=== PATIENT | male | born 1970 | race Caucasian/White ===

== ENCOUNTER 2020-07-29 19:18 | Emergency (ER) | payer SELFPAY ==
[2020-07-29] MEDS ORDERED: LORazepam 2 MG/ML VIAL ONE (19:33)
[2020-07-29 19:41] LABS: Absolute Lymphocytes (CBC) 1.4 K/uL (0.7-4.9); Basophils % 0.6 % (0-1.3); Hematocrit 35.2 % (39.6-49.0); Lymphocytes % 9.6 % (15.3-44.8); MPV 8.8 fL (7.6-11.3); RBC Red Blood Cell Count 3.97 M/uL (4.33-5.43)
[2020-07-29] MEDS ORDERED: NA CHLORIDE 0.9% 1,000 ML ONE (20:04)
[2020-07-29 20:08] LABS: ALT/SGPT 17 U/L (12-78); AST/SGOT 22 U/L (15-37); Albumin 3.4 g/dL (3.4-5.0); Alkaline Phosphatase 72 U/L (45-117); BUN Blood Urea Nitrogen 18 mg/dL (7-18); Bicarbonate 23 mmol/L (21-32); Bilirubin Direct 0.1 mg/dL (0-0.2); Bilirubin Total 0.3 mg/dL (0.2-1.0); Glucose Level 91 mg/dL (74-106); Potassium 3.3 mmol/L (3.5-5.1); Protein, Total 7.2 g/dL (6.4-8.2); Sodium Level 145 mmol/L (136-145)
[2020-07-29 20:09] LABS: Blood Morphology Comment NOT SEEN (NOT SEEN); Platelet Estimate ADEQ; White Blood Cell Scan OK (OK)
[2020-07-29 20:16] LABS: Protime INR 1.01
[2020-07-29 22:09] LABS: Urine Blood NEGATIVE (NEG); Urine Glucose NEGATIVE (NEG); Urine Protein 1+ (NEG); Urine Specific Gravity >1.030 (1.005-1.030); Urine pH 5.5 (5.0-7.0)
[2020-07-29 22:38] LABS: Barbiturates NEGATIVE (NEGATIVE); Benzodiazepines NEGATIVE (NEGATIVE); Cocaine NEGATIVE (NEGATIVE); METHAMPHETAM POSITIVE (NEGATIVE); Methadone NEGATIVE (NEGATIVE); Opiates NEGATIVE (NEGATIVE); Phencyclidine NEGATIVE (NEGATIVE); THC Cannibis POSITIVE (NEGATIVE)
--- NOTE | 2020-07-29 22:44 | EDPHYS ---
Physician Documentation [facility] Name: Alfredo Galdamez Age: 49 yrs Sex: Male : 1970 Arrival Date: 07/29/2020 Time: 19:18 Bed 8 Private MD: ED Physician Kelby Macias HPI: 07/30 06:39 This 49 yrs old Male presents to ER via EMS with complaints of Drug Abuse. tw4 06:39 Associated signs and symptoms: The patient has no apparent associated signs or tw4 symptoms. Severity of symptoms: At their worst the symptoms were moderate in the emergency department the symptoms are unchanged. The patient has experienced similar episodes in the past, a few times. Pt found by bystanders hallucinating after taking unknown amounts.. Historical: - Allergies: 07/29 19:50 No Known Allergies; vc - Immunization history:: Adult Immunizations unknown. - Social history:: Smoking status: Patient reports the use of cigarette tobacco products, Patient uses street drugs, Methamphetamine (Meth). ROS: 07/30 06:39 Constitutional: Negative for fever, chills, and weight loss, Eyes: Negative for injury, tw4 pain, redness, and discharge, Cardiovascular: Negative for chest pain, palpitations, and edema, Respiratory: Negative for shortness of breath, cough, wheezing, and pleuritic chest pain, Abdomen/GI: Negative for abdominal pain, nausea, vomiting, diarrhea, and constipation, Back: Negative for injury and pain, MS/Extremity: Negative for injury and deformity, Skin: Negative for injury, rash, and discoloration. Exam: 06:39 Constitutional: This is a well developed, well nourished patient who is awake, alert, tw4 and in no acute distress. Head/Face: Normocephalic, atraumatic. Chest/axilla: Normal chest wall appearance and motion. Nontender with no deformity. No lesions are appreciated. Cardiovascular: Regular rate and rhythm with a normal S1 and S2. No gallops, murmurs, or rubs. Normal PMI, no JVD. No pulse deficits. Respiratory: Lungs have equal breath sounds bilaterally, clear to auscultation and percussion. No rales, rhonchi or wheezes noted. No increased work of breathing, no retractions or nasal flaring. Abdomen/GI: Soft, non-tender, with normal bowel sounds. No distension or tympany. No guarding or rebound. No evidence of tenderness throughout. Back: No spinal tenderness. No costovertebral tenderness. Full range of motion. MS/ Extremity: Pulses equal, no cyanosis. Neurovascular intact. Full, normal range of motion. Neuro: Awake and alert, GCS 15, oriented to person, place, time, and situation. Cranial nerves II-XII grossly intact. Motor strength 5/5 in all extremities. Sensory grossly intact. Cerebellar exam normal. Normal gait. 06:39 Psych: Behavior/mood is cooperative, Affect is animated, Oriented to person, place, Patient has no thoughts/intents to harm self or others. Judgement / Insight is impaired. Delusions/hallucinations are present and described as hearing voices. Vital Signs: 07/29 19:42 BP 162 / 108; Pulse 128; Resp 20; Temp 101(O); Pulse Ox 98% on R/A; vc 20:33 BP 140 / 84; Pulse 74; Resp 20; Pulse Ox 100% ; vc 21:00 BP 144 / 97; Pulse 82; Resp 18; Temp 99.1; Pulse Ox 100% on R/A; Pain 0/10; vc 22:00 BP 139 / 84; Pulse 77; Resp 18; Pulse Ox 98% on R/A; Pain 0/10; vc MDM: 19:22 Patient medically screened. tw4 07/30 06:42 Differential diagnosis: Ingestion/exposure to methamphetamine. Data reviewed: vital tw4 signs, nurses notes. Data interpreted: Pulse oximetry: Interpretation: normal. Counseling: I had a detailed discussion with the patient and/or guardian regarding: the historical points, exam findings, and any diagnostic results supporting the discharge/admit diagnosis, lab results. Special discussion: I discussed with the patient/guardian in detail that at this point there is no indication for admission to the hospital. It is understood, however, that if the symptoms persist or worsen the patient needs to return immediately for re-evaluation. 07/29 19:23 Order name: Acetaminophen; Complete Time: 22:41 tw4 07/29 19:23 Order name: Basic Metabolic Panel; Complete Time: 22:41 tw4 07/29 22:42 Interpretation: Normal except: K 3.3; CRE 1.45; GFR 51. tw4 07/29 19:23 Order name: CBC with Diff; Complete Time: 22:41 [facility] 07/29 22:42 Interpretation: Normal except: WBC 14.3; RBC 3.97; HGB 11.8; HCT 35.2. [facility] 07/29 19:23 Order name: ETOH Level; Complete Time: 22:41 [facility] 07/29 22:42 Interpretation: Abnormal: ETOH 61. [facility] 07/29 19:23 Order name: Hepatic Function; Complete Time: 22:41 [facility] 07/29 22:42 Interpretation: Normal except: GLOB 3.8; A/G 0.9. [facility] 07/29 19:23 Order name: PT-INR; Complete Time: 22:41 [facility] 07/29 19:23 Order name: Ptt, Activated; Complete Time: 22:41 [facility] 07/29 19:23 Order name: Salicylate; Complete Time: 22:41 [facility] 07/29 19:23 Order name: Urine Drug Screen; Complete Time: 22:41 [facility] 07/29 22:42 Interpretation: Normal except: METHAMPHETAMINE POSITIVE; THC POSITIVE. [facility] 07/29 19:23 Order name: EKG; Complete Time: 19:24 [facility] 07/29 20:10 Order name: CBC Smear Scan; Complete Time: 22:41 [facility] 07/29 22:03 Order name: Urine Dipstick--Ancillary (enter results); Complete Time: 22:41 [facility] 07/29 22:42 Interpretation: Normal except: USPGR >1.030; UPROT 1+. [facility] 07/29 19:23 Order name: EKG - Nurse/Tech; Complete Time: 22:42 [facility] 07/29 19:23 Order name: IV Saline Lock; Complete Time: 19:42 [facility] 07/29 19:23 Order name: Labs collected and sent; Complete Time: 20:18 [facility] 07/29 19:23 Order name: Urine Dipstick-Ancillary (obtain specimen); Complete Time: 22:43 [facility] Administered Medications: 07/29 19:25 Drug: Ativan 1 mg Route: IVP; Site: right forearm; vc 20:00 Drug: NS 0.9% 1000 ml Route: IV; Rate: 1 bolus; Site: right forearm; vc Disposition: 07/29/20 22:44 Discharged to Home. Impression: Adverse effect of amphetamines, Cannabis abuse, Cannabis abuse with intoxication, uncomplicated. - Condition is Stable. - Discharge Instructions: Cannabis Use Disorder, Substance Use Disorder. - Medication Reconciliation Form, Thank You Letter, Antibiotic Education, Prescription Opioid Use form. - Follow up: Private Physician; When: Upon discharge from the Emergency Department; Reason: If symptoms return, Recheck today's complaints, Continuance of care, Re-evaluation by your physician. - Problem is new. - Symptoms have improved. Signatures: Dispatcher [employer] [facility] Kelby Macias MD MD tw4 Julissa Steele RN RN vc Corrections: (The following items were deleted from the chart) 23:17 22:44 07/29/2020 22:44 Discharged to Home. Impression: Adverse effect of amphetamines; vc Cannabis abuse; Cannabis abuse with intoxication, uncomplicated. Condition is Stable. Forms are Medication Reconciliation Form, Thank You Letter, Antibiotic Education, Prescription Opioid Use. Follow up: Private Physician; When: Upon discharge from the Emergency Department; Reason: If symptoms return, Recheck today's complaints, Continuance of care, Re-evaluation by your physician. Problem is new. Symptoms have improved. tw4
--- NOTE | 2020-07-29 22:44 | ER ---
Nurse's Notes [facility] Name: Alfredo Galdamez Age: 49 yrs Sex: Male : 1970 Arrival Date: 07/29/2020 Time: 19:18 Bed 8 Private MD: Diagnosis: Adverse effect of amphetamines;Cannabis abuse;Cannabis abuse with intoxication, uncomplicated Presentation: 07/29 19:42 Chief complaint: EMS states: "Patient was walking around an [place] complex in [facility] [place] [facility] when someone called stating they thought he was having a seizure, when we arrived he stated he hasn't had seizure and he's never had one in his life, "I just did a lot of Meth." Vitals in route were 171/113, pulse 125, 97% SpO2.". Coronavirus screen: fever, Client presents with at least one sign or symptom that may indicate coronavirus-19. Standard/surgical mask placed on the client. Ebola Screen: No symptoms or risks identified at this time. Initial Sepsis Screen: Does the patient meet any 2 criteria? Altered Mental Status. HR > 90 bpm. Yes Does the patient have a suspected source of infection? No. Patient's initial sepsis screen is negative. Risk Assessment: Do you want to hurt yourself or someone else? Patient reports no desire to harm self or others. Onset of symptoms was July 29, 2020. 19:42 Method Of Arrival: EMS: [facility] 19:42 Acuity: HAYDE 4 vc Triage Assessment: 19:45 General: Appears in no apparent distress. comfortable, slender, unkempt, Behavior is vc inappropriate for age, loud, and rambling. Talking to whom he states is Jehovah.. Pain: Denies pain. Historical: - Allergies: 19:50 No Known Allergies; vc - Immunization history:: Adult Immunizations unknown. - Social history:: Smoking status: Patient reports the use of cigarette tobacco products, Patient uses street drugs, Methamphetamine (Meth). Screenin:45 Abuse screen: Denies threats or abuse. Nutritional screening: No deficits noted. vc Tuberculosis screening: No symptoms or risk factors identified. Fall Risk None identified. Assessment: 19:40 General: Appears in no apparent distress. uncomfortable, Behavior is cooperative, vc inappropriate for age, Denies fever, feeling ill. Pain: Denies pain. Neuro: Level of Consciousness is awake, alert. 19:40 Musculoskeletal: Circulation, motion, and sensation intact. Range of motion: intact in vc all extremities. 19:40 General: Behavior is cooperative, inappropriate for age. Cardiovascular: Capillary vc refill < 3 seconds Patient's skin is warm and dry. Respiratory: Airway is patent Respiratory effort is even, unlabored, Respiratory pattern is regular, symmetrical. GI: Abdomen is flat, non-distended. : No signs and/or symptoms were reported regarding the genitourinary system. Derm: Wound noted left hand, Right first toenail and left foot. 21:00 Reassessment: Patient and/or family updated on plan of care and expected duration. Pain vc level reassessed. Patient denies pain at this time. 22:00 Reassessment: Patient and/or family updated on plan of care and expected duration. Pain vc level reassessed. Patient denies pain at this time. Patient states symptoms have improved. 23:00 Reassessment: Patient and/or family updated on plan of care and expected duration. Pain vc level reassessed. Patient denies pain at this time. Patient states symptoms have improved. Vital Signs: 19:42 BP 162 / 108; Pulse 128; Resp 20; Temp 101(O); Pulse Ox 98% on R/A; vc 20:33 BP 140 / 84; Pulse 74; Resp 20; Pulse Ox 100% ; vc 21:00 BP 144 / 97; Pulse 82; Resp 18; Temp 99.1; Pulse Ox 100% on R/A; Pain 0/10; vc 22:00 BP 139 / 84; Pulse 77; Resp 18; Pulse Ox 98% on R/A; Pain 0/10; vc ED Course: 19:18 Patient arrived in ED. cf2 19:22 Kelby Macias MD is Attending Physician. tw4 19:25 Inserted saline lock: 20 gauge in right forearm, using aseptic technique. Blood vc collected. 19:42 Julissa Steele RN is Primary Nurse. vc 19:45 Arm band placed on. vc 19:50 Triage completed. vc 23:15 No provider procedures requiring assistance completed. IV discontinued, intact, vc bleeding controlled, No redness/swelling at site. Pressure dressing applied. 23:15 Patient has correct armband on for positive identification. Bed in low position. Call vc light in reach. Side rails up X2. cardiac monitor technician on. Pulse ox on. NIBP on. Administered Medications: 19:25 Drug: Ativan 1 mg Route: IVP; Site: right forearm; vc 20:00 Drug: NS 0.9% 1000 ml Route: IV; Rate: 1 bolus; Site: right forearm; vc Outcome: 22:44 Discharge ordered by MD. pereira 23:15 Discharged to home ambulatory. vc 23:15 Condition: good 23:15 Discharge instructions given to patient, Instructed on discharge instructions, follow up and referral plans. 23:17 Patient left the ED. vc Signatures: Kelby Macias MD MD tw4 Ren Lyles cf2 Julissa Steele RN RN vc Corrections: (The following items were deleted from the chart) 20:22 20:19 Inserted saline lock: 20 gauge in right forearm, using aseptic technique. Blood vc collected. vc 07/30 02:15 07/29 22:44 General: Appears in no apparent distress. uncomfortable, Behavior is vc cooperative, inappropriate for age, Denies fever, feeling ill, vc 07/30 02:15 16 22:44 Pain: Denies pain. vc vc 07/30 02:15 07/29 22:44 Neuro: Level of Consciousness is awake, alert, stuporous, vc vc
[2020-07-29 23:31] VITALS: TEMP 99.1
[2020-07-29 23:33] VITALS: BP 139/84; O2SAT 98
== END 2020-07-29 23:17 | disposition home or self-care (01) ==
LOC: ER 19:18
DX: F12.129 Cannabis abuse with intoxication, unspecified (principal); T43.625A Adverse effect of amphetamines, initial encounter; F17.210 Nicotine dependence, cigarettes, uncomplicated
CPT/HCPCS: 36415; 80048; 80076; 80307; 80320; 80329; 81003; 85025; 85610; 85730; 93005; 96374; 99284; J7030

== ENCOUNTER 2024-11-09 20:39 | Emergency (ER) | payer OTHER, SELFPAY ==
[2024-11-09 21:11] LABS: Absolute Basophils 0.1 K/uL (0-0.5); Absolute Eosinophils 0.1 K/uL (0-0.5); Absolute Monocytes 0.5 K/uL (0.1-1.3); Basophils % 0.9 % (0-1.3); Hemoglobin 12.6 g/dL (13.6-17.9); Lymphocytes % 14.7 % (15.3-44.8); MCH 29.9 pg (27.0-35.0); MCV 90.6 fL (80-100); MPV 8.5 fL (7.6-11.3); Monocytes % 7.9 % (3.3-12.3); Neutrophils % 74.5 % (41.7-73.7); Platelets 169 thou/uL (152-406); Red Cell Distribution Width 13.9 % (12.1-15.2)
[2024-11-09 21:31] LABS: Anion Gap 6.7 mEq/L (5.0-15.0); Potassium 3.7 mEq/L (3.5-5.1)
--- NOTE | 2024-11-09 21:47 | ER ---
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 Coronavirus screen: Client denies travel out of the [place] in the last 14 days. Ebola Screen: Patient negative for fever greater than or equal to 101.5 degrees Fahrenheit, and additional compatible Ebola Virus Disease symptoms Patient denies exposure to infectious person. Patient denies travel to an Ebola-affected area in the 21 days before illness onset. Initial Sepsis Screen: Does the patient meet any 2 criteria? No. Patient's initial sepsis screen is negative. Does the patient have a suspected source of infection? No. Patient's initial sepsis screen is negative. Risk Assessment: Do you want to hurt yourself or someone else? Patient reports no desire to harm self or others. Onset of symptoms was October 26, 2024 at 12:00. 20:55 Acuity: HAYDE 3 br2 20:55 Method Of Arrival: EMS: [facility] br2 21:07 Chief complaint:. br2 Triage Assessment: 20:59 General: Appears uncomfortable, Behavior is flat, quiet. Pain: Complains of pain in br2 right leg and left leg Pain does not radiate. Pain currently is 6 out of 10 on a pain scale. EENT: No signs and/or symptoms were reported regarding the EENT system. Neuro: Diamond Agitation-Sedation Scale (RASS): 0 - Alert and Calm Reports dizziness, weakness in face since 2 WEEKS. Cardiovascular: Reports lightheadedness, shortness of breath, Capillary refill < 3 seconds. Respiratory: Airway is patent Respiratory effort is even, unlabored, Respiratory pattern is regular, symmetrical. GI: Reports lower abdominal pain, upper abdominal pain. Historical: - Allergies: 20:59 No Known Allergies; br2 - Home Meds: 20:59 None [Active]; br2 - PSHx: 20:59 None; br2 - Immunization history:: Adult Immunizations not up to date. - Infectious Disease History:: Denies. - Social history:: Smoking status: Patient reports the use of cigarette tobacco products, smokes one-half pack cigarettes per day, Patient uses alcohol, occasionally. street drugs, marijuana, Methamphetamine (Meth). Screenin:55 [facility] ED Fall Risk Assessment (Adult) History of falling in the last 3 months, br2 including since admission No falls in past 3 months (0 pts) Confusion or Disorientation No (0 pts) Intoxicated or Sedated No (0 pts) Impaired Gait No (0 pts) Mobility Assist Device Used No (0 pt) Altered Elimination No (0 pt) Score/Fall Risk Level 0 - 2 = Low Risk Oriented to surroundings. Abuse screen: Denies threats or abuse. Denies injuries from another. Nutritional screening: No deficits noted. Tuberculosis screening: No symptoms or risk factors identified. Vital Signs: 20:55 BP 151 / 90; Pulse 64; Resp 21 S; Temp 98.1; Pulse Ox 99% on R/A; Weight 72.57 kg; br2 Height 5 ft. 7 in. ; Pain 7/10; 21:50 BP 153 / 83; Pulse 60; Resp 18 S; Pulse Ox 99% on R/A; br2 20:55 Body Mass Index 25.06 (72.57 kg, 170.18 cm) br2 20:55 Pain Scale: Adult br2 ED Course: 20:54 Patient arrived in ED. ec2 20:54 Arik Isaacs MD is Attending Physician. ec2 20:55 Nina Juárez RN is Primary Nurse. br2 20:55 Arm band placed on right wrist. br2 20:55 Patient has correct armband on for positive identification. Bed in low position. Call br2 light in reach. Side rails up X 1. Provided Education on: PLAN OF CARE. 20:59 Triage completed. br2 21:12 EKG done, by atm technician. af3 21:13 Inserted saline lock: 20 gauge in right antecubital area, using aseptic technique. af3 Blood collected. Flushed with 10 mL NS. 21:47 XRAY Chest (1 view) In Process Unspecified. EDMS 21:58 No provider procedures requiring assistance completed. IV discontinued, intact, br2 bleeding controlled, No redness/swelling at site. Pressure dressing applied. Administered Medications: No medications were administered Medication: 21:58 VIS not applicable for this client. br2 Outcome: 21:46 Discharge ordered by . ec2 :58 Discharged to home via wheelchair, br2 :58 Condition: good :58 Discharge instructions given to patient, Instructed on discharge instructions, follow up and referral plans. Demonstrated understanding of instructions, follow-up care, 22:09 Patient left the ED. 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 PT STATES HE HAS BEEN FEELING DIZZY FOR OVER 2 WEEKS BUT WORSE TODAY. br2 21: 20:55 Method Of Arrival: EMS: [facility] br2 br2
--- NOTE | 2024-11-09 21:47 | EDPHYS ---
Physician Documentation [facility] Name: Alfredo Galdamez Age: 54 yrs Sex: Male : 1970 Arrival Date: 11/09/2024 Time: 20:39 Bed 18 Private MD: ED Physician Arik Isaacs HPI: 11/09 20:55 This 54 yrs old Male presents to ER via Unassigned with complaints of ec2 multiple. 20:55 Patient arrives today for multiple complaints. Patient with complaints to me of cough ec2 and chest tightness. Patient reports unknown timeframe of this. No vomiting, no diarrhea. Patient expressed EMS some dental pain as well as some dizziness to nursing however did not express either of these to me.. Historical: - Allergies: 20:59 No Known Allergies; br2 - Home Meds: 20:59 None [Active]; br2 - PSHx: 20:59 None; br2 - Immunization history:: Adult Immunizations not up to date. - Infectious Disease History:: Denies. - Social history:: Smoking status: Patient reports the use of cigarette tobacco products, smokes one-half pack cigarettes per day, Patient uses alcohol, occasionally. street drugs, marijuana, Methamphetamine (Meth). ROS: 20:55 Constitutional: as per hpi ec2 Exam: 20:55 Constitutional: GEN: NAD Head: atraumatic Eyes: EOMI Ears: External ears are ec2 normal. CV: regular rate LUNGS: no respiratory distress, no wheezes or rales or rhonchi ABD: non-distended SKIN: no evidence of rashes MSK: no evidence of trauma Vital Signs: 20:55 BP 151 / 90; Pulse 64; Resp 21 S; Temp 98.1; Pulse Ox 99% on R/A; Weight 72.57 kg; br2 Height 5 ft. 7 in. ; Pain 7/10; 21:50 BP 153 / 83; Pulse 60; Resp 18 S; Pulse Ox 99% on R/A; br2 20:55 Body Mass Index 25.06 (72.57 kg, 170.18 cm) br2 20:55 Pain Scale: Adult br2 MDM: 20:54 Medical Screening Exam initiated ec2 20:55 Data reviewed: vital signs, nurses notes. ED course: Patient arrives today for reported ec2 chest tightness. Examination is unrevealing. Will obtain cardiac workup.. 21:12 ED course: EKG independently reviewed and interpreted by me, shows normal sinus rhythm, ec2 rate of 62, no acute ST segment elevations, intervals are nonactionable, PAC noted.. 21:35 ED course: Lab work is unrevealing.. ec2 21:36 ED course: Chest x-ray independently reviewed and interpreted by me, shows no acute ec2 intrathoracic process.. 21:45 ED course: Reassessed patient sleeping comfortably without any acute distress. Will ec2 discharge home. Differential diagnosis considered included arrhythmia, anemia, electrolyte disturbances, ACS.. 12 20:55 Order name: Basic Metabolic Panel; Complete Time: 21:35 ec2 11/09 20:55 Order name: CBC with Diff; Complete Time: 21:35 ec2 11/09 20:55 Order name: Troponin HS; Complete Time: 21:35 ec2 11/09 20:55 Order name: XRAY Chest (1 view) ec2 11/09 20:55 Order name: EKG; Complete Time: 20:55 ec2 11/09 20:55 Order name: Cardiac monitoring; Complete Time: 21:12 ec2 11/09 20:55 Order name: EKG - Nurse/Tech; Complete Time: 21:12 ec2 11/09 20:55 Order name: IV Saline Lock; Complete Time: 21:12 ec2 11/09 20:55 Order name: Labs collected and sent; Complete Time: 21:12 ec2 11/09 20:55 Order name: O2 Per Protocol; Complete Time: 21:12 ec2 11/09 20:55 Order name: O2 Sat Monitoring; Complete Time: 21:12 ec2 Administered Medications: No medications were administered Disposition Summary: 11/09/24 21:46 Discharge Ordered Notes: Location: Home ec2 Condition: Stable ec2 Diagnosis - Dyspnea, unspecified ec2 Followup: ec2 - With: Private Physician - When: - Reason: Re-evaluation by your physician Discharge Instructions: - Discharge Summary Sheet ec2 - Shortness of Breath, Adult, [id number] ec2 Forms: - Medication Reconciliation Form ec2 - Antibiotic Education ec2 - Prescription Opioid Use ec2 - Patient Portal Instructions ec2 - Leadership Thank You Letter ec2 Signatures: Dispatcher [employer] Arik Barajas MD MD ec2 Nina Juárez, GERMAIN RN br2
--- NOTE | 2024-11-09 21:59 | RAD REPORT ---
EXAM: Chest Single View HISTORY: COUGH COMPARISON: None. FINDINGS: LUNGS/PLEURA: Coarsening of the pulmonary interstitial markings at the right lung base. Right midlung nodule identified. MEDIASTINUM: The mediastinal silhouette is within normal limits. CARDIAC: Within normal limits. UPPER ABDOMEN: No significant abnormality. BONES: No acute fracture. LINES/TUBES/OTHER: N/A IMPRESSION: Increased pulmonary interstitial markings at the right lung base could reflect mild infection or infl ammation. No consolidative airspace disease or edema. Right midlung nodular opacity. Recommend further evaluation with nonemergent chest CT to further koby acterize.
[2024-11-09 23:00] VITALS: BP 151/90; TEMP 98.1; O2SAT 99
--- NOTE | 2024-11-11 11:12 | EKG ---
Test Date: 2024-11-09 Test Time: 21:09:43 Environmental Projects Advisor: AF MEASUREMENT RESULTS: Intervals: Rate: 62 UT: 130 QRSD: 78 QT: 492 QTc: 499 Mcconnell: P: 69 UT: 130 QRS: 64 T: 55 INTERPRETIVE STATEMENTS: Sinus rhythm Prolonged QT Abnormal ECG Compared to ECG 07/29/2020 20:02:23 Prolonged QT interval now present Left ventricular hypertrophy no longer present Electronically Signed On 11-11-24 11:09:38 HEALTH SCIENCES PROGRAM COORDINATOR by Jaden Adams
== END 2024-11-09 22:09 | disposition home or self-care (01) ==
LOC: ER 20:39
DX: R06.00 Dyspnea, unspecified (principal); R05.9 Cough, unspecified; R07.89 Other chest pain; F17.210 Nicotine dependence, cigarettes, uncomplicated
CPT/HCPCS: 36415; 71045; 80048; 84484; 85025; 93005; 99284